=== PATIENT | female | born 1975 | race Caucasian/White ===

== ENCOUNTER → 2017-01-27 | Outpatient (CLI) | payer OTHER | LOC: RADMAMWWP 10:47 | PROVIDERS: ATTEND Pediatrics | DX: Z53.9 Procedure and treatment not carried out, unspecified reason (principal) ==

== ENCOUNTER → 2017-03-11 | Outpatient (CLI) | payer OTHER ==
--- NOTE | 2017-03-12 09:14 | MM ---
Reason for exam: screening (asymptomatic). Last mammogram was performed 1 year and 2 months ago. History: Patient has history of other cancer at age 35. Benign excisional biopsy of the right breast, 1995. Taking hormonal contraceptives for 1 year. Physical Findings: A clinical breast exam by your physician is recommended on an annual basis and results should be correlated with mammographic findings. MG Screening Mammo w CAD Bilateral CC and MLO view(s) were taken. Prior study comparison: January 16, 2016, bilateral MG 3d diag mammo w/cad [facility]. There are scattered fibroglandular densities. No significant changes when compared with prior studies. ASSESSMENT: Benign, BI-RAD 2 RECOMMENDATION: Routine screening mammogram of both breasts in 1 year.
== END | disposition home or self-care (01) ==
LOC: RADMAMWWP 12:52
PROVIDERS: ATTEND Pediatrics
DX: Z12.31 Encounter for screening mammogram for malignant neoplasm of breast (principal)

== ENCOUNTER 2017-10-04 19:28 | Outpatient (CLI) | payer OTHER ==
[2017-10-04 20:27] VITALS: BP 109/66; PULSE 95; RESP 16; TEMP 97.4
--- NOTE | 2017-10-05 06:48 | P.MSEPDOC ---
Presenting Problems - Arrival Data Date of Arrival on Unit: 10/04/17 Time of Arrival on Unit: 19:28 Mode of Transport: Wheelchair - Complaint OB-Reason for Admission/Chief Complaint: Acute Nausea/Vomiting Comment: Pt arrives to triage with c/o of n/v starting 2 days previous but has been only dry heaving since 1729 today. Medical History - Information : 4 Para: 2 Term: 2 : 0 Abortions: Spontaneous or Elective: 1 Number of Living Children: 2 - Gestational Age Gestational Age by BANDAR (wks/days): 23 Weeks and 6 Days Review of Systems - Review of Systems Constitutional: No problems Breast: No problems ENT: No problems Cardiovascular: No problems Respiratory: No problems Gastrointestinal: No problems Genitourinary: No problems Musculoskeletal: No problems Neurological: No problems Skin: No problems Vital Signs - Temperature Temperature: 97.4 F Temperature Source: Temporal Artery Scan - Pulse Right Brachial Pulse Rate: 95 Pulse Assessment Method: Automatic Cuff - Respirations Respiratory Rate: 16 Oxygen Delivery Method: Room Air - Blood Pressure Right Arm Blood Pressure: 109/66 Blood Pressure Mean: 80 Blood Pressure Source: Automatic Cuff Medical Screen Scoring (Pre) - Cervical Exam Dilation: Exam Deferred Effacement: Exam Deferred Membranes: Intact - Uterine Contractions Frequency: N/A Duration: N/A Intensity: N/A - Maternal Vital Signs Maternal Temperature: N/A Maternal Blood Pressure: N/A Signs of Preeclampsia: N/A Maternal Respirations: N/A - Pain Assessment Pain Scale Used: Numeric (1 - 10) Pain Intensity: 0 - Total Score Total Score (Pre): 0 - Level of Risk Level of Risk: Low (0-5) Physician Notification (Pre) - Physician Notified Physician Notified Date: 10/04/17 Physician Notified Time: 20:12 Physician/Practitioner Notifed:: Dr. Saleem Spoke With: Dr. Saleem New Order Received: Yes (D/c pt to home) - Notification Comment Comment: reviewed by this RN Disposition - Disposition OB Disposition: Discharge to home Discharge Date: 10/04/17 Discharge Time: 20:22 I agree with the RN Medical Screening Exam: Yes Risk & Benefit of care provided described in d/c instruction: Yes Diagnosis: VOMITING OF , UNSPECIFIED
== END 2017-10-04 20:22 | disposition home or self-care (01) ==
LOC: FBPOP 19:28
PROVIDERS: ATTEND Obstetrics & Gynecology
DX: O21.2 Late vomiting of pregnancy (principal); Z3A.23 23 weeks gestation of pregnancy
CPT/HCPCS: 99213

== ENCOUNTER → 2018-03-18 | Outpatient (CLI) | payer OTHER ==
[2018-03-18 17:09] LABS: Basophils % (A) 0 %; Eosinophils # (A) 0.1 k/uL (0-0.7); Eosinophils % (A) 2 %; HCT 35.8 % (34.0-46.0); HGB 10.8 gm/dL (11.4-16.0); Hypochromasia Marked; Lymphocytes # (A) 2.8 k/uL (1.0-4.8); Lymphocytes % (A) 33 %; MCH 18.4 pg (25.0-35.0); MCHC 30.2 g/dL (31.0-37.0); MCV 60.8 fL (80.0-100.0); Mean Platelet Volume 6.2; Microcytosis Marked; Monocytes # (A) 0.4 k/uL (0-1.0); Monocytes % (A) 4 %; Neutrophils % (A) 59 %; Platelet Count 331 k/uL (150-450); RBC 5.89 m/uL (3.80-5.40); RDW 14.4 % (11.5-15.5); WBC 8.5 k/uL (3.8-10.6)
== END | disposition home or self-care (01) ==
LOC: LABWHC1 16:45
PROVIDERS: ATTEND Anesthesiology
DX: Z01.812 Encounter for preprocedural laboratory examination (principal)
CPT/HCPCS: 36415; 85025

== ENCOUNTER → 2018-04-23 | Outpatient (CLI) | payer OTHER ==
--- NOTE | 2018-04-27 10:06 | MM ---
Reason for exam: screening (asymptomatic). Last mammogram was performed 1 year and 1 month ago. History: Patient has history of other cancer at age 35. Benign excisional biopsy of the right breast, 1995. Took hormonal contraceptives for 1 year. Physical Findings: A clinical breast exam by your physician is recommended on an annual basis and results should be correlated with mammographic findings. MG Screening Mammo w CAD Bilateral CC and MLO view(s) were taken. Prior study comparison: March 11, 2017, bilateral MG screening mammo w CAD. January 16, 2016, bilateral MG 3d diag mammo w/cad [facility]. The breast tissue is heterogeneously dense. This may lower the sensitivity of mammography. Asymmetric breast tissue 5cm from nipple at 3 o'clock. This finding is changed when compared with previous exams. ASSESSMENT: Incomplete: need additional imaging evaluation, BI-RAD 0 RECOMMENDATION: Special view mammogram of the left breast. If lesion persists on supplemental views, image directed ultrasound is recommended. [facility] will attempt to contact patient to return for supplemental views and ultrasound if indicated.
== END | disposition home or self-care (01) ==
LOC: RADMAMWWP 14:04
PROVIDERS: ATTEND Pediatrics
DX: Z12.31 Encounter for screening mammogram for malignant neoplasm of breast (principal)
CPT/HCPCS: 77067

== ENCOUNTER → 2018-05-06 | Outpatient (CLI) | payer OTHER ==
--- NOTE | 2018-05-06 14:08 | MM ---
Reason for exam: additional evaluation requested from abnormal screening. Last mammogram was performed less than 1 month ago. History: Patient has history of other cancer at age 35. Benign excisional biopsy of the right breast, 1995. Took hormonal contraceptives for 1 year. Physical Findings: Nurse did not find any significant physical abnormalities on exam. MG Work Up Mamm w CAD LT CC and MLO view(s) were taken of the left breast. Prior study comparison: April 23, 2018, bilateral MG screening mammo w CAD. March 11, 2017, bilateral MG screening mammo w CAD. The breast tissue is heterogeneously dense. This may lower the sensitivity of mammography. There is no discrete abnormality including area of concern. These results were verbally communicated with the patient and result sheet given to the patient on 05/06/18. ASSESSMENT: Negative, BI-RAD 1 RECOMMENDATION: Return to routine screening mammogram schedule for both breasts.
== END | disposition home or self-care (01) ==
LOC: RADMAMWWP 13:32
PROVIDERS: ATTEND Pediatrics
DX: R92.8 Other abnormal and inconclusive findings on diagnostic imaging of breast (principal)
CPT/HCPCS: 77065

== ENCOUNTER → 2019-04-23 | Outpatient (CLI) | payer OTHER ==
--- NOTE | 2019-04-27 07:58 | MM ---
Reason for exam: screening (asymptomatic). Last mammogram was performed 1 year ago. History: Patient has history of other cancer at age 35. Benign excisional biopsy of the right breast, 1995. Took hormonal contraceptives for 1 year. Physical Findings: A clinical breast exam by your physician is recommended on an annual basis and results should be correlated with mammographic findings. MG 3D Screening Mammo W/Cad Bilateral CC and MLO view(s) were taken. Prior study comparison: May 06, 2018, left breast MG work up mamm w CAD LT. April 23, 2018, bilateral MG screening mammo w CAD. There are scattered fibroglandular densities. No significant changes when compared with prior studies. ASSESSMENT: Negative, BI-RAD 1 RECOMMENDATION: Routine screening mammogram of both breasts in 1 year.
== END | disposition home or self-care (01) ==
LOC: RADMAMWWP 12:30
PROVIDERS: ATTEND Family Medicine
DX: Z12.31 Encounter for screening mammogram for malignant neoplasm of breast (principal)
CPT/HCPCS: 77063; 77067

== ENCOUNTER → 2019-06-03 | Outpatient (CLI) | payer OTHER ==
--- NOTE | 2019-06-03 13:48 | XR ---
EXAMINATION TYPE: XR hand complete bilateral DATE OF EXAM: 06/03/2019 CLINICAL HISTORY: Hand pain TECHNIQUE: Frontal, lateral and oblique images of the bilateral hand are obtained. COMPARISON: None. FINDINGS: There is no acute fracture/dislocation evident in the bilateral hand. The joint spaces in the bilateral hand appear within normal limits. The overlying soft tissue appears unremarkable. IMPRESSION: Normal appearance of the bilateral hands.
== END ==
LOC: RADXRMAIN 12:51
PROVIDERS: ATTEND Midwife
DX: M79.641 Pain in right hand (principal); M25.542 Pain in joints of left hand

== ENCOUNTER 2019-10-19 16:22 | Emergency (ER) | payer OTHER ==
[2019-10-19 16:37] VITALS: BP 124/74; PULSE 89; RESP 20; TEMP 98.7
[2019-10-19] MEDS ORDERED: AMOXIC-POT CLAV 875-125MG 1 EACH TAB PO STA (17:32)
[2019-10-19] MEDS ORDERED: AMOXIC-POT CLAV 875MG STARTER 2 EACH TABLET PO STA (17:32)
--- NOTE | 2019-10-19 17:32 | ED ---
General Adult HPI - General Chief complaint: Upper Respiratory Infection Stated complaint: sore throat, drainage, ear pain Time Seen by Provider: 10/19/19 17:00 Source: patient, RN notes reviewed, old records reviewed Mode of arrival: ambulatory Limitations: no limitations - History of Present Illness Initial comments: 44-year-old female patient presents to ED with chief complaint of maxillary sinus pressure and drainage, mild cough the last 5 days. Fully vaccinated, denies any fevers or chills. Reports mild frontal lobe headache that she believes is due to sinuses. Declines red flag symptoms. Denies any other complaints. Systemic: Pt denies fatigue, fever/chills, rash. Pt denies weakness, night sweats, weight loss. Neuro: Pt denies visual disturbances, syncope or pre-syncope. HEENT: Pt denies ocular discharge or irritation, otalgia, rhinorrhea, pharyngitis or notable lymphadenopathy. Cardiopulmonary: Pt denies chest pain, SOB, heart palpitations, dyspnea on exertion. Abdominal/GI: Pt denies abdominal pain, n/v/d. : Pt denies dysuria, burning w/ urination, frequency/urgency. Denies new onset urinary or bowel incontinence. MSK: Pt denies myalgia, loss of strength or function in extremities. Neuro: Pt denies new onset weakness, paresthesias. - Related Data Home Medications Medication Instructions Recorded Confirmed Ferrous Sulfate [Iron] 650 mg PO 10/04/17 Levothyroxine Sodium [Synthroid] 10/04/17 Pnv No.95/Ferrous Fum/Folic AC 10/04/17 [ Multivitamin Tablet] Previous Rx's Medication Instructions Recorded Amoxicillin/Potassium Clav 1 tab PO Q12HR 10 Days #20 tab 10/19/19 [Augmentin 875-125 Tablet] Allergies Allergy/AdvReac Type Severity Reaction Status Date / Time codeine AdvReac Nausea Verified 10/04/17 19:35 Review of Systems ROS Statement: Those systems with pertinent positive or pertinent negative responses have been documented in the HPI. ROS Other: All systems not noted in ROS Statement are negative. Past Medical History Past Medical History: Thyroid Disorder Additional Past Medical History / Comment(s): anemia History of Any Multi-Drug Resistant Organisms: None Reported Additional Past Surgical History / Comment(s): Thyroid surgery Past Psychological History: Depression Smoking Status: Never smoker General Exam - General Exam Comments Initial Comments: Constitutional: NAD, AOX3, Pt has pleasant affect. HEENT: NC/AT, trachea midline, neck supple, no lymphadenopathy. Posterior pharynx non erythematous, without exudates. External ears appear normal, without discharge. TM pale lopes bilaterally, small effusion noted in right tympanic membrane. Mucous membranes moist. Eyes PERRLA, EOM intact. There is no scleral icterus. No pallor noted. Maxillary sinus pressure reproducible upon palpation. Cardiopulmonary: RRR, no murmurs, rubs or gallops, no JVD noted. Lungs CTAB in anterior and posterior andujar. No peripheral edema. Abdominal exam: Abdomen soft and non-distended. Abdomen non-tender to palpation in all 4 quadrants. Bowel sounds active in LLQ. No hepatosplenomegaly. No ecchymosis Neuro: CN II-XII intact. No nuchal rigidity. No raccon eyes, no barboza sign, no hemotympanum. No cervical spinal tenderness. MSK: No posterior calf tenderness bilaterally, homans sign negative bilaterally. Posterior tibialis and radial pulse +2 bilaterally. Sensation intact in upper and lower extremities. Full active ROM in upper and lower extremities, 5/5 stregnth. Limitations: no limitations Course Vital Signs 10/19/19 16:35 Temperature 98.7 F Pulse Rate 89 Respiratory 20 Rate Blood Pressure 124/74 O2 Sat by Pulse 98 Oximetry Medical Decision Making - Medical Decision Making 44-year-old female patient presents with chief complaint of sinus pressure and congestion, mild headache. Patient vital signs are stable, afebrile. Physical exam displayed small right tympanic membrane effusion. Patient declined further imaging including chest x-ray, requests treatment for sinusitis. Reports she'll return to ER if cough worsens in any way. Return precautions were discussed. Case discussed with Dr. Barry. Disposition Clinical Impression: Sinusitis Disposition: HOME SELF-CARE Condition: Stable Instructions (If sedation given, give patient instructions): Sinusitis (ED) Additional Instructions: Follow-up with primary care provider tomorrow. Take antibiotics as directed. Return to ER if condition worsens in any way. Prescriptions: Amoxicillin/Potassium Clav [Augmentin 875-125 Tablet] 1 tab PO Q12HR 10 Days #20 tab Is patient prescribed a controlled substance at d/c from ED?: No Referrals: Austin Rodriguez MD [Primary Care Provider] - 1-2 days
== END 2019-10-19 17:41 | disposition home or self-care (01) ==
LOC: EC 16:22
DX: J32.9 Chronic sinusitis, unspecified (principal); E07.9 Disorder of thyroid, unspecified; D64.9 Anemia, unspecified; Z53.29 Procedure and treatment not carried out because of patient's decision for other reasons; Z79.890 Hormone replacement therapy; Z88.5 Allergy status to narcotic agent
CPT/HCPCS: 99283

== ENCOUNTER → 2019-11-08 | Outpatient (CLI) | payer OTHER ==
--- NOTE | 2019-11-08 12:35 | XR ---
EXAMINATION TYPE: XR abdomen acute w cxr DATE OF EXAM: 11/08/2019 CLINICAL HISTORY: Situs inversus per order. TECHNIQUE: Single frontal view of chest is obtained. Supine and upright views of the abdomen are acq uired. COMPARISON: Chest x-ray June 24, 2010. FINDINGS: Elevated left hemidiaphragm is now present. The lungs are grossly clear without pleural eff usion or pneumothorax. Cardiac silhouette size appears stable and within normal limits. Osseous str uctures are intact. Air-fluid level in stomach which is mildly distended. Gas is noted in nondistended small bowel loops. Gas and fecal material is seen in nondistended colon tubal ligation clips in the pelvis. Scattered pelvic phleboliths. Partial sacralization right L5 level. Note is made of left-sided cardiac arch, apex, and stomach bubble. IMPRESSION: Normal situs.
== END ==
LOC: RADXRMAIN 11:50
PROVIDERS: ATTEND Family Medicine
DX: Q89.3 Situs inversus (principal)
CPT/HCPCS: 74022

== ENCOUNTER → 2020-06-14 | Outpatient (CLI) | payer OTHER ==
--- NOTE | 2020-06-15 10:56 | MM ---
Reason for exam: screening (asymptomatic). Last mammogram was performed 1 year and 2 months ago. History: Patient has history of other cancer at age 35. Benign excisional biopsy of the right breast, 1995. Took hormonal contraceptives for 1 year. Physical Findings: A clinical breast exam by your physician is recommended on an annual basis and results should be correlated with mammographic findings. MG 3D Screening Mammo W/Cad Bilateral CC and MLO view(s) were taken. Prior study comparison: April 23, 2019, bilateral MG 3d screening mammo w/cad. May 06, 2018, left breast MG work up mamm w CAD LT. March 11, 2017, bilateral MG screening mammo w CAD. January 16, 2016, bilateral MG 3d diag mammo w/cad [facility]. There are scattered fibroglandular densities. Previous mammotome biopsy in the left breast. No significant changes when compared with prior studies. ASSESSMENT: Negative, BI-RAD 1 RECOMMENDATION: Routine screening mammogram of both breasts in 1 year.
== END | disposition home or self-care (01) ==
LOC: RADMAMWWP 14:51
PROVIDERS: ATTEND Pediatrics
DX: Z12.31 Encounter for screening mammogram for malignant neoplasm of breast (principal)
CPT/HCPCS: 77063; 77067

== ENCOUNTER → 2020-08-11 | Outpatient (CLI) | payer OTHER ==
--- NOTE | 2020-08-11 16:00 | XR ---
Left ankle HISTORY: Pain 3 views of left ankle Postop changes are noted to the medial malleolus, distal fibula. Alignment is maintained. Possible an kylosis of the distal tibia and fibula. No dislocation or fracture. Some spurring is present at the t ibiotalar joint anteriorly. There is soft tissue swelling present. Enthesophyte present at the insert ion of the Achilles tendon. 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
== END | disposition home or self-care (01) ==
LOC: RAD 14:17
PROVIDERS: ATTEND Physician Assistant
DX: M19.072 Primary osteoarthritis, left ankle and foot (principal); M24.672 Ankylosis, left ankle; Z98.890 Other specified postprocedural states

== ENCOUNTER → 2021-12-21 | Outpatient (CLI) | payer OTHER ==
--- NOTE | 2021-12-21 15:37 | US ---
EXAMINATION TYPE: US pelvic complete DATE OF EXAM: 12/21/2021 COMPARISON: NONE CLINICAL HISTORY: N80.9 ENDOMETRIOSIS, UNSPECIFIED. Intermittent pelvic cramping and spotting since a blation 2 years ago, 5, para 4, history of and tubal ligation TECHNIQUE: . Transabdominal sonographic images of the pelvis were acquired. Date of LMP: Unknown EXAM MEASUREMENTS: Uterus: 8.2 x 3.9 x 5.3 cm Endometrial Stripe: 0.6 cm Right Ovary: 3.9 x 2.1 x 2.1 cm Left Ovary: 3.0 x 1.6 x 1.7 cm 1. Uterus: anteverted, heterogeneous 2. Endometrium: appears wnl 3. Right Ovary: 1.4 x 1.4 x 1.4cm hypoechoic area 4. Left Ovary: wnl 5. Bilateral Adnexa: wnl 6. Posterior cul-de-sac: small amount of free fluid IMPRESSION: Heterogenous uterine myometrium which can small leiomyomatous change. Small cystic area right ovary m ay reflect a functional ovarian cysts.
--- NOTE | 2021-12-22 07:17 | US ---
EXAMINATION TYPE: US thyroid st tissue head/neck DATE OF EXAM: 12/21/2021 COMPARISON: US 2016 CLINICAL HISTORY: hyperthyroidism. History of thyroid CA and thyroidectomy GLAND: Right Lobe: surgically absent Left Lobe: surgically absent Isthmus: surgically absent Bilateral neck scanned, no evidence of lymphadenopathy. IMPRESSION: Surgical absence of the thyroid lobes. No evidence for recurrent or residual nodule.
== END | disposition home or self-care (01) ==
LOC: RADUSWWP 14:55
PROVIDERS: ATTEND Pediatrics
DX: N80.9 Endometriosis, unspecified (principal); E05.90 Thyrotoxicosis, unspecified without thyrotoxic crisis or storm; E89.0 Postprocedural hypothyroidism
CPT/HCPCS: 76536; 76856

== ENCOUNTER → 2022-09-13 | Outpatient (CLI) | payer OTHER ==
--- NOTE | 2022-09-13 13:45 | CT ---
EXAMINATION TYPE: CT abdomen pelvis w con DATE OF EXAM: 09/13/2022 COMPARISON: None HISTORY: vaginal bleeding CT DLP: 630.3 mGycm Automated exposure control for dose reduction was used. TECHNIQUE: Helical acquisition of images was performed from the lung bases through the pelvis. CONTRAST: Performed with Oral Contrast and with IV Contrast, patient injected with 70 mL of Isovue 300. FINDINGS: The lung bases are clear. The gallbladder is normal without distention, wall thickening, gallstones or pericholecystic fluid. T here is no biliary ductal dilatation. There is no focal mass or organomegaly involving the liver, pancreas, spleen or adrenal glands. Kidneys excrete contrast promptly and symmetrically is no solid renal mass or hydronephrosis. There is no retroperitoneal adenopathy or hemorrhage in the caliber the abdominal aorta is normal. The bowel loops are normal in caliber and there is no evidence of dilatation or obstruction. There ar e postsurgical changes involving right colon.. There are no inflammatory changes within the bowel wal l or mesentery. There is no free intraperitoneal air or fluid. There is a 3.8 cm well-circumscribed rounded fluid-filled mass in the left hemipelvis which likely re ad. Difficult to determine separate mass immediately adjacent to the bladder but it has a benign appe arance and is filled with fluid density similar to that of the urinary bladder. There is no pelvic adenopathy or free fluid No focal lytic or blastic osseous abnormalities are seen. IMPRESSION: 1. Postsurgical changes involving the ascending colon. 2. 3.8 cm Fluid density mass adjacent to the urinary bladder or diverticulum of the urinary bladder.
== END | disposition home or self-care (01) ==
LOC: RADCTMAIN 10:52
PROVIDERS: ATTEND Pediatrics
DX: N32.3 Diverticulum of bladder (principal); N93.9 Abnormal uterine and vaginal bleeding, unspecified
CPT/HCPCS: 74177; Q9967

== ENCOUNTER → 2024-04-07 | Outpatient (CLI) | payer OTHER ==
[2024-04-07 19:04] LABS: ALT 37 U/L (8-44); AST 28 U/L (13-35); Albumin 4.3 g/dL (3.8-4.9); Albumin/Globulin Ratio 1.95 Ratio (1.60-3.17); Alkaline Phosphatase 76 U/L (41-126); BUN/Creat Ratio 15.38 Ratio (12.00-20.00); Blood Urea Nitrogen 12.3 mg/dL (9.0-27.0); Calcium 9.5 mg/dL (8.7-10.3); Carbon Dioxide 25.8 mmol/L (21.6-31.8); Chloride 104 mmol/L (96-109); Globulin 2.2 g/dL (1.6-3.3); Glucose 79 mg/dL (70-110); Potassium 4.3 mmol/L (3.5-5.5); Sodium 140 mmol/L (135-145); Total Bilirubin 0.3 mg/dL (0.3-1.2); Total Protein 6.5 g/dL (6.2-8.2)
== END | disposition home or self-care (01) ==
LOC: LABWHC1 15:18
PROVIDERS: ATTEND Urology Pediatric Urology
DX: N39.0 Urinary tract infection, site not specified (principal)
CPT/HCPCS: 36415; 80053